=== PATIENT | female | born 1995 | race Caucasian/White ===

== ENCOUNTER 2016-12-27 08:19 | Emergency (ER) | payer OTHER ==
[~2016-12-27] VITALS: Ht 157.5 cm; Wt 63.5 kg
[2016-12-27 09:22] LABS: ABSOLUTE BASOPHIL COUNT 0 /CUMM (0.0-0.2); ABSOLUTE EOSINOPHIL COUNT 0 /CUMM (0.0-0.7); ABSOLUTE GRANULOCYTE CT 6.6 /CUMM (1.4-6.5); ABSOLUTE MONOCYTE COUNT 0.3 /CUMM (0.10-0.60); BASOPHIL % 0.5 % (0.0-2.0); EOSINOPHIL % 0.1 % (0-5); GRANULOCYTE % 82.5 % (42.2-75.2); MEAN CORPUSCULAR HGB 30.9 PG (27.0-31.0); MEAN CORPUSCULAR HGB CONC 34.8 G/DL (33.0-37.0); MEAN PLATELET VOLUME 7.2 FL (7.4-10.4); PLATELET COUNT 267 /CUMM (130-400); RBC DISTRIBUTION WIDTH 12.6 % (11.5-14.5); RED BLOOD CELL CT 4.95 /CUMM (4.20-5.40); WHITE BLOOD CELL COUNT 7.9 /CUMM (4.8-10.8)
--- NOTE | 2016-12-27 09:26 | ED GI/GU/ABDOMINAL COMPLAINT ---
History of Present Illness General Chief Complaint: Nausea, Vomiting, Diarrhea Stated Complaint: N/V X COUPLE HOURS Source: patient Exam Limitations: no limitations Vital Signs & Intake/Output Vital Signs & Intake/Output Vital Signs Date Time Temp Pulse Resp B/P Pulse O2 O2 Flow FiO2 Ox Delivery Rate 12/27 1050 97.0 100 20 112/74 98 Room Air 12/27 0825 97.8 130 18 145/83 98 Room Air Allergies Coded Allergies: No Known Allergies (12/27/16) Reconcile Medications Ondansetron (Zofran Odt) 4 MG TAB.RAPDIS 1 TAB SL TID PRN NAUSEA Triage Note: 22 YEAR OLD FEMALE STATES THAT SHE ATE LSD AT 0200 AND STARTED TO VOMIT AROUND 0500, CAN'T HOLD FLUIDS DOWN Triage Nurses Notes Reviewed? yes ? N Is pt currently ? No Onset: Gradual Duration: hour(s): (6) Timing: no prior history Quality/Severity: vomiting Severity Numbers: 7 Location: generalized abdomen Radiation: no radiation Activities at Onset: AFTER USING DRUGS Prior Abdominal Problems: none Past Sexual History: Unobtainable at this time No Modifying Factors: none HPI: Patient is a 21-year-old female presenting to the emergency department with chief complaint of nausea, generalized abdominal discomfort after drinking alcohol and using LSD last night. She reports that she feels like she needs to vomit but nothing is coming up. Denies any urinary symptoms. She denies ever using LSD in the past. Her boyfriend used all the same batch of LSD and feels okay. Denies any headaches or vision changes. Denies any current hallucinations. Denies taking anything to help with symptoms. No fevers, positive chills. Has not taken her temperature. (GUSTAVO AYALA) Past History Travel History Traveled to [place] past 21 day No Medical History Any Pertinent Medical History? see below for history Neurological: NONE EENT: NONE Cardiovascular: NONE Respiratory: NONE Gastrointestinal: NONE Hepatic: NONE Renal: NONE Musculoskeletal: SCOLIOSIS Psychiatric: anxiety Endocrine: NONE Blood Disorders: NONE Cancer(s): NONE BOOK PUBLISHER/Reproductive: NONE Surgical History Surgical History: non-contributory Psychosocial History What is your primary language St [place] Tobacco Use: Current Daily Use Daily Tobacco Use Amount/Type: => 5 Cigarettes daily ETOH Use: denies use Illicit Drug Use: marijuana, LSD Family History Hx Contributory? No (GUSTAVO AYALA) Review of Systems Review of Systems Constitutional: Reports: no symptoms. Comments Review of systems: See HPI, All other systems negative. Constitutional, no chills fever or weight loss HEENT: No visual changes no sore throat no congestion Cardiovascular: No chest pain ,palpitation , orthopnea or ankle swelling Skin, no jaundice no rashes Respiratory: No dyspnea cough sputum or hemoptysis GI: no vomiting : No dysuria No hematuria Muscle skeletal: no back pain, no neck pain, Neurologic: No numbness no headaches Psych: No stress anxiety or depression,. Heme/endocrine: No bruising no bleeding no polyuria or polydipsia Immunology: No splenectomy or history of AIDS, up-to-date with immunizations (GUSTAVO AYALA) Physical Exam Physical Exam General Appearance: well developed/nourished, no apparent distress, alert, awake , comfortable Gastrointestinal: soft, non-tender Comments: Well-developed well-nourished person in no acute distress HEENT: extraocular motion intact, no nystagmus. Pupils equally round and reactive to light and accommodation. Mydriasis patent. Nose is atraumatic. External auditory canal and Tympanic membranes clear. Pharynx normal. No swelling or edema. Dry oral mucosa. Neck: Supple, no lymphadenopathy, normal range of motion without pain or tenderness Back: Nontender Cardiovascular: Regular rate and rhythms no murmurs rubs or gallops, normal JVP Respiratory: Chest nontender. No respiratory distress.breath sounds clear to auscultation bilaterally Abdomen: Soft, nontender nondistended, no appreciable organomegaly. Normal bowel sounds. No ascites, no rebound or guarding. Extremity: No edema Neuro: Alert oriented x3, motor sensory normal Skin: No appreciable rash on exposed skin, skin is warm and dry. Psych: Mood and affect is normal, memory and judgment is normal. Appears HUNG OVER. Core Measures ACS in differential dx? No Severe Sepsis Present: No Septic Shock Present: No (GUSTAVO AYALA) Progress Differential Diagnosis: UTI/pyelo, DEHYDRATION, ELECTROLYTE ABNORMALITY, WITHDRAWAL, INTOXICATION Plan of Care: Orders Procedure Date/time Status URINE 12/27 907 Complete URINE DRUG SCREEN FOR ER ONLY 12/27 906 Complete URINALYSIS 12/27 906 Complete LIPASE 12/27 906 Complete COMPREHENSIVE METABOLIC PANEL 12/27 906 Complete CBC WITHOUT DIFFERENTIAL 12/27 906 Complete AMYLASE 12/27 906 Complete Laboratory Tests 12/27/16 1043: Urine Opiates Screen < 100.00, Methadone Screen < 40, Barbiturate Screen < 60, Ur Phencyclidine Scrn < 6.00, Amphetamines Screen 160, U Benzodiazepines Scrn < 85, Urine Cocaine Screen < 50, Urine Cannabis Screen > 80.00 H, Urinalysis LIGHT H, Urine Color YEL, Urine Clarity HAZY H, Urine pH 6.0, Ur Specific [place] >= 1.030, Urine Protein TRACE H, Urine Ketones 15 H, Urine Nitrite NEG , Urine Bilirubin NEG, Urine Urobilinogen 0.2, Ur Leukocyte Esterase NEG, Ur Microscopic SEDIMENT EXAMINED, Urine RBC 1-3, Urine WBC RARE, Ur Epithelial Cells MOD H, Urine Mucus MOD H, Urine Hemoglobin NEG, Urine Glucose NEG 12/27/16 0910: Anion Gap 19 H, Estimated GFR > 60, BUN/Creatinine Ratio 11.4, Glucose 92, Calcium 10.2, Total Bilirubin 0.6, AST 25, ALT 28, Alkaline Phosphatase 66, Total Protein 8.6 H, Albumin 5.1 H, Globulin 3.5, Albumin/Globulin Ratio 1.5, Amylase 55, Lipase 50, CBC w Diff NO MAN DIFF REQ, RBC 4.95, MCV 89.0, MCH 30.9, RDW 12.6, MPV 7.2 L, Gran % 82.5 H, Lymphocytes % 12.9 L, Monocytes % 4.0, Eosinophils % 0.1, Basophils % 0.5, Absolute Granulocytes 6.6 H, Absolute Lymphocytes 1.0 L, Absolute Monocytes 0.3, Absolute Eosinophils 0, Absolute Basophils 0, PUBS MCHC 34.8 12/27/16 0908: Urine Test NEGATIVE Initial ED EKG: none Comments: Patient medicated with IV fluids, IV Zofran for symptoms he had resting quietly on the stretcher at this time. Likely related to LSD use. Patient informed of all labs. Patient will follow up with PCP. (GUSTAVO AYALA) Departure Departure Time of Disposition: 1100 Disposition: HOME OR SELF CARE Condition: Stable Clinical Impression Primary Impression: Drug side effects Secondary Impressions: Nausea Referrals: PATIENT HAS NO PRIMARY CARE DR (PCP/Family) Additional Instructions: Follow-up with your primary care physician call TO MAKE appointment. Increase fluids. Take Zofran as prescribed for nausea. Return for worsening symptoms. Avoid using drugs. Departure Forms: Customer Survey D/C INS-APPENDICITIS EXCLUSION General Discharge Information Prescriptions: Current Visit Scripts Ondansetron (Zofran Odt) 1 TAB SL TID PRN NAUSEA #10 TAB (GUSTAVO AYALA) PA/[employer] Co-Sign Statement Statement: ED Attending supervision documentation- [] I saw and evaluated the patient. I have also reviewed all the pertinent lab results and diagnostic results. I agree with the findings and the plan of care as documented in the PA's/[employer]'s documentation. [X] I have reviewed the ED Record and agree with the PA's/[employer]'s documentation. [] Additions or exceptions (if any) to the PAs/[employer]'s note and plan are summarized below: [] (RJ HILL DO
[2016-12-27 10:50] VITALS: BP 112/74
[2016-12-27] MEDS ORDERED: ZOFRAN ODT4 M1 SL (11:01)
== END 2016-12-27 11:40 ==
LOC: ERH 08:19 → EDBD 08:33 → ERH 08:33
PROVIDERS: Physician Assistant
DX: T40.8X1A Poisoning by lysergide [LSD], accidental (unintentional), initial encounter (principal); T51.0X1A Toxic effect of ethanol, accidental (unintentional), initial encounter; R11.0 Nausea
CPT/HCPCS: 80307; 81001; 81025; 96361; 96374; J2405

== ENCOUNTER 2017-01-18 15:29 | Emergency (ER) | payer OTHER ==
[~2017-01-18] VITALS: Ht 157.5 cm; Wt 63.5 kg
[~2017-01-18 15:29] MED LIST: ZOFRAN ODT4 M1 SL
[2017-01-18 15:45] VITALS: BP 117/84
--- NOTE | 2017-01-18 17:01 | RADIOLOGY REPORT ---
EXAMINATION: XR FOOT, RIGHT CLINICAL INFORMATION: Pain. Right foot injury. COMPARISON: None TECHNIQUE: AP, lateral, and oblique views of the right foot. FINDINGS: There is no fracture or dislocation. Joint spaces are maintained. Alignment is anatomic. The soft tissues are unremarkable. No ankle joint effusion. IMPRESSION: Unremarkable right foot radiographs.
--- NOTE | 2017-01-18 18:12 | ED UPPER/LOWER EXTREMITY COMPL ---
History of Present Illness General Chief Complaint: Lower Extremity Injury Stated Complaint: RIGHT FOOT INJURY Source: patient Exam Limitations: no limitations Vital Signs & Intake/Output Vital Signs & Intake/Output Vital Signs Date Time Temp Pulse Resp B/P Pulse O2 O2 Flow FiO2 Ox Delivery Rate 01/18 1545 97.7 87 18 117/84 99 Room Air Allergies Coded Allergies: No Known Allergies (12/27/16) Reconcile Medications Ondansetron (Zofran Odt) 4 MG TAB.RAPDIS 1 TAB SL TID PRN NAUSEA Triage Note: PT TO TRIAGE WITH C/O R FOOT PAIN 7/10 INCREASING WHEN STEP ON IT S/P DROPPED DRESSER ON R FOOT LAST NIGHT. ICE PACK PROVIDED. PT REFUSED PAIN MEDS IN TRIAGE. VSS. Triage Nurses Notes Reviewed? yes Onset: Abrupt Duration: day(s): (1) Timing: no prior history Severity: moderate Severity Numbers: 7 Pain/Injury Location: Right: Foot. Method of Injury: direct blow Modifying Factors: Improves With: immobilization. Worsens With: movement. : No Patient currently breastfeeds: No HPI: Patient is a 21-year-old female presenting to the emergency department with chief complaint of right foot pain after dropping a bureau on it yesterday. Denies any other injury. Pain is achy throbbing worse with any palpation or movement. She's been icing with little relief. Denies numbness or tingling. Pain worse with weightbearing as well. Past History Travel History Traveled to [place] past 21 day No Medical History Any Pertinent Medical History? see below for history Neurological: NONE EENT: NONE Cardiovascular: NONE Respiratory: NONE Gastrointestinal: NONE Hepatic: NONE Renal: NONE Musculoskeletal: SCOLIOSIS Psychiatric: anxiety Endocrine: NONE Blood Disorders: NONE Cancer(s): NONE HEALTH CLAIMS EXAMINER/Reproductive: NONE Surgical History Surgical History: non-contributory Psychosocial History What is your primary language [place] Leonean Tobacco Use: Current Daily Use Daily Tobacco Use Amount/Type: => 5 Cigarettes daily Family History Hx Contributory? No Review of Systems Review of Systems Constitutional: Reports: no symptoms. Comments Review of systems: See HPI, All other systems negative. Constitutional, no chills fever or weight loss HEENT: No visual changes no sore throat no congestion Cardiovascular: No chest pain ,palpitation Skin, no jaundice no rashes Respiratory: No dyspnea cough GI: No nausea no vomiting Muscle skeletal: no back pain, no neck pain, Neurologic: No numbness no confusion Psych: No stress anxiety Immunology: No splenectomy or history of AIDS Physical Exam Physical Exam General Appearance: well developed/nourished, no apparent distress, alert, awake , comfortable Comments: Well-developed well-nourished person in no acute distress HEENT: Nose is atraumatic. Neck: Normal inspection Back: Nontender, no CVA tenderness. Full range of motion Cardiovascular: normal JVP Respiratory: . No respiratory distress. Extremity: Tender to palpation over the right first mtp joint. Limited range of motion of the right great toe secondary to pain. Capillary refill is intact in lower extremity bilaterally. Nontender to palpation over the medial or lateral malleolus. Full range of motion of right ankle. No fifth metatarsal pain to palpation. Mild edema noted over the first metatarsal phalangeal joint. Pedal pulses are 2+ bilaterally. Neuro: Alert oriented x3, motor sensory normal Skin: Small amount of ecchymosis noted over the radius first mtp joint, otherwise skin unremarkable. Psych: Mood and affect is normal, memory and judgment is normal. Progress Differential Diagnosis: contusion, dislocation, fracture, sprain, tendon injury Plan of Care: Patient will be placed in Sascha wrap. X-rays unremarkable. Likely contusion. Educated on rice and NSAIDs. Diagnostic Imaging: Viewed by Me: Radiology Read. Discussed w/RAD: Radiology Read. Radiology Impression: no acute abnormality, no fracture, no dislocation, no foreign body seen Departure Departure Time of Disposition: 1808 Disposition: HOME OR SELF CARE Condition: Stable Clinical Impression Primary Impression: Contusion Qualifiers: Encounter type: initial encounter Contusion area: foot Laterality: right Qualified Code: S90.31XA - Contusion of right foot, initial encounter Referrals: PATIENT HAS NO PRIMARY CARE DR (PCP/Family) Additional Instructions: follow up with pcp call to make appt. wear sascha wrap for support. take motrin and tylenol as directed. rest, ice and elevate. Departure Forms: Customer Survey General Discharge Information Procedures Splinting Location: right foot Manual Alignment Performed: No Pre-Made Type: Sascha wrap Splint: Sascha wrap Splint Applied By: splint applied by me Pre-Proc Neuro Vasc Exam: normal Post-Proc Neuro Vasc Exam: normal Progress: Patient tolerated procedure well.
== END 2017-01-18 18:41 ==
LOC: ERH 15:29
DX: S90.31XA Contusion of right foot, initial encounter (principal); W23.1XXA Caught, crushed, jammed, or pinched between stationary objects, initial encounter
CPT/HCPCS: 73630-RT

== ENCOUNTER 2017-03-03 18:45 | Emergency (ER) | payer OTHER ==
[~2017-03-03] VITALS: Ht 160 cm; Wt 59.0 kg
[2017-03-03 19:55] LABS: ABSOLUTE BASOPHIL COUNT 0 /CUMM (0.0-0.2); ABSOLUTE EOSINOPHIL COUNT 0 /CUMM (0.0-0.7); ABSOLUTE GRANULOCYTE CT 8.7 /CUMM (1.4-6.5); ABSOLUTE LYMPH COUNT 0.6 /CUMM (1.2-3.4); ABSOLUTE MONOCYTE COUNT 0.2 /CUMM (0.10-0.60); BASOPHIL % 0.2 % (0.0-2.0); EOSINOPHIL % 0 % (0-5); HEMATOCRIT 42.5 % (37-47); MEAN CORPUSCULAR HGB 30.4 PG (27.0-31.0); MEAN CORPUSCULAR HGB CONC 33.9 G/DL (33.0-37.0); MEAN CORPUSCULAR VOLUME 89.7 FL (81.0-99.0); MEAN PLATELET VOLUME 7.6 FL (7.4-10.4); PLATELET COUNT 282 /CUMM (130-400); RBC DISTRIBUTION WIDTH 12.9 % (11.5-14.5); RED BLOOD CELL CT 4.74 /CUMM (4.20-5.40); WHITE BLOOD CELL COUNT 9.4 /CUMM (4.8-10.8)
--- NOTE | 2017-03-03 20:12 | ED GI/GU/ABDOMINAL COMPLAINT ---
History of Present Illness General Chief Complaint: General Adult Stated Complaint: PT CAN'T KEEP ANYTHING DOWN Source: patient Exam Limitations: no limitations Vital Signs & Intake/Output Vital Signs & Intake/Output Vital Signs Date Time Temp Pulse Resp B/P Pulse O2 O2 Flow FiO2 Ox Delivery Rate 03/03 2223 77 18 128/73 99 Room Air 03/03 2105 99.0 81 18 119/76 100 Room Air 03/039 Room Air 03/03 1855 97.3 68 24 121/75 99 Room Air ED Intake and Output 03/04 0000 03/03 1200 Intake Total 1000 Output Total Balance 1000 Intake, IV 1000 Patient 130 lb Weight Allergies Coded Allergies: cat dander (SNEEZING, EYES ITCH AND REDNESS 03/03/17) Reconcile Medications Medroxyprogesterone Acetate (Depo-Provera) 150 MG/ML SYRINGE 1 ML IM Q3M CONTROL (Reported) Metoclopramide HCl (Reglan) 10 MG TABLET 1 TAB PO 4 TIMES/DAY PRN NAUSEA Promethazine HCl 25 MG TABLET 1 TAB PO Q6P PRN NAUSEA Triage Note: TRIAGE: PT TO ER C/C N/V/D ONSET THIS MORNING. STATES CAN'T KEEP ANYTHING DOWN. HAD PRESCRIPTION FOR ZOFRAN WHICH WAS GIVEN TO HER LAST MONTH FOR TREATMENT OF SAME S/S. STATES THE ZOFRAN DID NOT HELP HER. UNSURE OF LMP, "I TAKE DEPO" Triage Nurses Notes Reviewed? yes ? N Is pt currently ? No Onset: Abrupt Duration: constant Timing: multiple episodes today Quality/Severity: cramping Severity Numbers: 5 Location: generalized abdomen Radiation: no radiation Activities at Onset: eating, ETOH HPI: Patient is a 21-year-old female with an unremarkable past medical history who states that yesterday she drank a bottle of wine and today patient woke up with a acute onset of fever or nausea and multiple episodes of nonbloody nonbilious emesis can't tolerate anything by mouth Diarrhea is noted to be loose watery stool no blood no melena noted. Patient had previously prescribed Zofran with no relief Patient has localized mild epigastric pain Patient states that she drank a half a bottle wine last night while she was drinking with friends where another friend also had acute onset of nausea and vomiting and which she also had one episode that evening of vomiting. Patient throughout the night had persistent nausea and patient woke up today with multiple up those of nausea vomiting and diarrhea. (MATILDA CROWELL) Past History Travel History Traveled to [place] past 21 day No Medical History Any Pertinent Medical History? see below for history Neurological: NONE EENT: NONE Cardiovascular: NONE Respiratory: NONE Gastrointestinal: NONE Hepatic: NONE Renal: NONE Musculoskeletal: SCOLIOSIS Psychiatric: anxiety Endocrine: NONE Blood Disorders: NONE Cancer(s): NONE CONTRACTS ADMINISTRATOR/Reproductive: NONE Surgical History Surgical History: non-contributory Psychosocial History What is your primary language [place] Tobacco Use: Current Daily Use Daily Tobacco Use Amount/Type: => 5 Cigarettes daily ETOH Use: denies use Illicit Drug Use: marijuana Family History Hx Contributory? No (MATILDA CROWELL) Review of Systems Review of Systems Constitutional: Reports: see HPI. EENTM: Reports: no symptoms. Respiratory: Reports: no symptoms. Cardiovascular: Reports: no symptoms. GI: Reports: see HPI, abdominal pain, nausea. Genitourinary: Reports: no symptoms. Musculoskeletal: Reports: no symptoms. Skin: Reports: no symptoms. Neurological/Psychological: Reports: no symptoms. Hematologic/Endocrine: Reports: no symptoms. Immunologic/Allergic: Reports: no symptoms. All Other Systems: Reviewed and Negative (MATILDA CROWELL) Physical Exam Physical Exam General Appearance: no apparent distress, comfortable Gastrointestinal: normal bowel sounds, soft, GENERALIZED POINT TENDERNESS NOTED Comments: Well-developed well-nourished person in no acute distress HEENT: Normal EENT exam, . Neck: Supple, no lymphadenopathy, normal range of motion without pain or tenderness Back: Nontender, no CVA tenderness. Cardiovascular: Regular rate and rhythms no murmurs rubs or gallops, normal JVP Respiratory: Chest nontender. No respiratory distress.breath sounds clear to auscultation bilaterally Abdomen: Soft, nontender nondistended, no appreciable organomegaly. Normal bowel sounds. No ascites Extremity: No edema, no calf tenderness to palpation, normal and equal pulses. Neuro: Alert oriented x3, motor sensory normal, Skin: No appreciable rash on exposed skin, skin is warm and dry. Psych: Mood and affect is normal, memory and judgment is normal. Core Measures ACS in differential dx? No Severe Sepsis Present: No Septic Shock Present: No (MATILDA CROWELL) Progress Differential Diagnosis: AAA, AMI, appendicitis, biliary colic, bowel obstruction , colon cancer, cholecystitis, diverticulitis, ectopic , endometritis, esophageal varices, gastritis, hepatitis, hernia, ischemic bowel, inflamm bowel dis, intrauterine , kidney stone, Jessica-Bucky tear, ovarian cyst, ovarian torsion, pancreatitis, PID/cervicitis, peptic ulcer, PUD/GERD, perforated viscous, SBO, threatened AB, UTI/pyelo Plan of Care: Orders Procedure Date/time Status Add-on Test (ER Only) 03/03 2014 Active ETHANOL 03/03 1948 Complete URINALYSIS 03/03 1934 Active MAGNESIUM 03/03 1934 Complete LIPASE 03/03 1934 Complete HUMAN BETA HCG SCREEN 03/03 1934 Complete COMPREHENSIVE METABOLIC PANEL 03/03 1934 Complete CBC WITHOUT DIFFERENTIAL 03/03 1934 Complete AMYLASE 03/03 1934 Complete Laboratory Tests 03/03/171947: Anion Gap 18 H, Estimated GFR > 60, BUN/Creatinine Ratio 18.3, Glucose 124 H, Calcium 10.6 H, Magnesium 1.5 L, Total Bilirubin 1.1, AST 29, ALT 30, Alkaline Phosphatase 62, Total Protein 8.5 H, Albumin 5.0, Globulin 3.5, Albumin/ Globulin Ratio 1.4, Amylase 61, Lipase 43, Total Beta HCG NEGATIVE, CBC w Diff NO MAN DIFF REQ, RBC 4.74, MCV 89.7, MCH 30.4, RDW 12.9, MPV 7.6, Gran % 91.9 H , Lymphocytes % 6.1 L, Monocytes % 1.8, Eosinophils % 0, Basophils % 0.2, Absolute Granulocytes 8.7 H, Absolute Lymphocytes 0.6 L, Absolute Monocytes 0.2, Absolute Eosinophils 0, Absolute Basophils 0, PUBS MCHC 33.9, Serum Alcohol < 10.0 Patient currently had unremarkable blood work and my suspicion of appendicitis is low. Patient was administered IV fluids and anti-emetics and had significant resolution of her symptoms patient was able tolerate by mouth upon discharge. Patient was strongly advised to return to emergency room especially if pain localized to right lower quadrant and symptoms of appendicitis were discussed and she will comply (MATILDA CROWELL) Initial ED EKG: none (MATILDA CROWELL) Departure Departure Disposition: HOME OR SELF CARE Condition: Stable Clinical Impression Primary Impression: Gastroenteritis Secondary Impressions: Nausea & vomiting Referrals: ARIA YEE,ETIENNE Sykes PATIENT HAS NO PRIMARY CARE DR (PCP/Family) Additional Instructions: DISCUSSED BEGIN A 24 HOUR CLEAR LIQUID AND BLAND DIET AND PLENTY OF WATER BEGIN PRESCRIPTION OF PHENERGAN AND REGLAN FOR NAUSEA PRESCRIPTIONS ARE WAITING AT [facility] IF NO BETTER ON SUNDAY FOLLOW UP WITH GI DOCTOR ARIA IF SYMPTOMS WORSEN RETURN TO THE ER. Departure Forms: Customer Survey General Discharge Information Prescriptions: Current Visit Scripts Promethazine HCl 1 TAB PO Q6P PRN NAUSEA #10 TAB Metoclopramide HCl (Reglan) 1 TAB PO 4 TIMES/DAY PRN NAUSEA #12 TAB (MATILDA CROWELL) PA/[employer] Co-Sign Statement Statement: ED Attending supervision documentation- [] I saw and evaluated the patient. I have also reviewed all the pertinent lab results and diagnostic results. I agree with the findings and the plan of care as documented in the PA's/MACHINE [employer]'s documentation. x I have reviewed the ED Record and agree with the PA's/MACHINE [employer]'s documentation. [] Additions or exceptions (if any) to the PAs/MACHINE [employer]'s note and plan are summarized below: [] (ADALGISA YEE,HOMAR)
[2017-03-03 20:16] LABS: GRANULOCYTE % 91.9 % (42.2-75.2)
[2017-03-03] MEDS ORDERED: DEPO-PROVE150 MG/11 IM (20:20)
[2017-03-03 22:23] VITALS: BP 128/73
[2017-03-03] MEDS ORDERED: REGLAN10 M1 PO (22:59)
[2017-03-03] MEDS ORDERED: PROMETHAZINE HC25 M3 PO (22:59)
== END 2017-03-03 23:06 ==
LOC: ERH 18:45
PROVIDERS: Emergency Medicine
DX: K52.9 Noninfective gastroenteritis and colitis, unspecified (principal)
CPT/HCPCS: 96361; 96365; 96375; G0480; J1885; J2405; J2550; J2765